=== PATIENT | female | born 1955 | race Two or more races ===

== ENCOUNTER 2019-12-22 11:02 | Emergency (ER) | payer SELFPAY ==
[2019-12-22 11:07] VITALS: BP 152/89; PULSE 99; RESP 14; TEMP 36.9; O2SAT 98; BMI 33.2
--- NOTE | 2019-12-22 11:50 | CTR_ITS ---
PROCEDURE INFORMATION: Exam: CT Head Without Contrast Exam date and time: 12/22/2019 11:58 AM Age: 64 years old Clinical indication: Pain; Headache; Additional info: Severe headache and dizziness TECHNIQUE: Imaging protocol: Computed tomography of the head without contrast. Radiation optimization: All CT scans at this facility use at least one of these dose optimization techniques: automated exposure control; mA and/or kV adjustment per patient size (includes targeted exams where dose is matched to clinical indication); or iterative reconstruction. COMPARISON: CT head wo con* [id number] 02/09/2017 9:27 AM RADIATION DOSE METRICS: Total DLP (mGy-cm): 860.27 FINDINGS: Brain: There is no acute intracranial hemorrhage. No extra-axial fluid collection. No evidence of acute infarct. Barrios white differentiation is intact. There is no evidence of mass. There is no mass effect or midline shift. Cerebral ventricles: No ventriculomegaly. Bones/joints: No acute fracture. Paranasal sinuses: Again seen is small amount of opacification in bilateral posterior ethmoid air cells. No sinus air-fluid levels. Mastoid air cells: Mastoid air cells and middle ear cavities are well developed and well aerated. Vasculature: There is mild calcification of intracranial internal carotid arteries. Soft tissues: Unremarkable as visualized. CT/CT head wo con* [id number] IMPRESSION: No evidence of acute intracranial abnormality. No acute hemorrhage. No evidence of acute infarct or mass. Radiation Dose CTDIVOL = (mGy): DLP = 860.27 (mGy-cm)
--- NOTE | 2019-12-22 11:50 | ECG_ITS ---
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
--- NOTE | 2019-12-22 11:51 | W.ED.CHESTPA ---
HPI - Chest Pain General: Chief Complaint: Chest Pain Stated Complaint: chest pain/headache Time Seen by Provider: 12/22/19 11:43 Source: patient and family Mode of arrival: ambulatory History of Present Illness: HPI narrative: Patient has had intermittent chest pain for the last 2 days. Yesterday she also had generalized headache that she said was severe and that worried her. Her only medical history is hypertension and she takes 10 mg of lisinopril daily. She has not seen her primary care provider in a while because of the Covid virus pandemic. She is currently pain free. MD complaint: chest pain Onset (ago): day(s) (2) Timing of current episode: episodic Prior episodes: Yes Onset: during rest Pain location: left chest Pain radiation: back Severity: severe Quality: tightness and heaviness Relieving factors: other (OTC meds - omeprazole and ibuprofen) Exacerbating factors: nothing Associated symptoms: Deny abdominal pain, diaphoresis, dyspnea, fever(s), leg edema, nausea, palpitations, sense of impending doom, syncope or vomiting Review of Systems General: Reports: 10 or more systems reviewed and unremarkable except in HPI and below Const: Denies: fever(s) or diaphoresis Eyes: Denies: change in vision or blurry vision ENMT: Denies: throat pain, enlarged tonsils, odynophagia, hoarseness, mouth pain or swelling of lips/tongue Card: Denies: palpitations or syncope Resp: Denies: dyspnea GI: Denies: abdominal pain, nausea or vomiting : Denies: flank pain, difficulty voiding, dysuria, urinary frequency, urinary urgency or urinary hesitancy Musc: Denies: neck pain, back pain or extremity swelling Skin/Breast: Denies: rash, pruritus or erythema Neuro: Denies: headache(s), numbness in extremities or weakness in extremities Endo: Denies: polyuria, polydipsia or tired all the time Physical Exam Const: COMMON NORMALS: no acute distress, average body habitus, patient oriented x3, no limitations, healthy appearing, alert and well nourished HENMT: COMMON NORMALS: normocephalic, atraumatic and moist oral mucous membranes HEAD & SCALP: normocephalic and atraumatic Neck/C-Spine: COMMON NORMALS: full ROM, supple, no meningeal signs, no JVD and No carotid bruits Chest: COMMONS NORMALS: normal inspection of the chest and normal palpation of entire chest wall Resp: COMMON NORMALS: normal respiratory effort, No retractions, No use of accessory muscles, clear to auscultation bilaterally and percussion normal AUSCULTATION: clear to auscultation bilaterally PERCUSSION: percussion normal Cardio: COMMON NORMALS: no JVD, regular rate, regular rhythm, S1 normal heart sound present, S2 normal heart sound present, No gallops present (Cardio), No clicks present (Cardio), No murmurs present (Cardio), No rub (Cardio) and Peripheral pulses 2+ throughout RATE: regular rate RHYTHM: regular rhythm HEART SOUNDS: S1 normal heart sound present and S2 normal heart sound present PERIPHERAL PULSES: Peripheral pulses 2+ throughout GI: COMMON NORMALS: Normal to inspection, nondistended, normoactive bowel sounds present, Soft to palpation, non-tender, No hepatosplenomegaly present, no masses and no bruits PALPATION: Yes Soft to palpation and Yes No hepatosplenomegaly present Extremity: COMMON NORMALS: normal to inspection, full ROM, capillary refill normal, no calf tenderness and no pedal edema Neuro: COMMON NORMALS: patient oriented x3 SENSORIUM/ORIENTATION: Yes alert MENINGEAL SIGNS: Yes no meningeal signs Skin: COMMON NORMALS: no rashes or lesions noted, no wounds, turgor normal, no jaundice, no petechiae and no mottling GENERAL SKIN EXAM: no rashes or lesions noted and turgor normal Course Reevaluation(s): Reevaluation #1: Discussed her lab and imaging findings with her. Negative for acute findings. Since the chest pain is intermittent and has been on for 2 days will order stress test for her outpatient for further evaluation of blood flow to her heart. She voiced understanding and is in agreement with the plan. Time: 13:35 Vital Signs: Vital signs: Vital Signs Temperature 98.4 F 12/22/19 11:07 Pulse Rate 102 H 12/22/19 14:06 Respiratory Rate 8 L 12/22/19 14:06 Blood Pressure 152/81 12/22/19 14:06 Pulse Oximetry 98 12/22/19 14:06 MDM - Chest Pain MDM Narrative: Medical decision making narrative: 64-year-old female patient who presents to the emergency department with chest pain. Evaluation in the ED was unremarkable for acute causes of the pain. 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 Medical Records: Attestation: I reviewed the patient's medical records. Lab Data: Attestation: I reviewed the patient's lab results. Labs: Lab Results 12/22/19 12/22/19 12/22/19 Range/Units 12:14 12:14 12:14 WBC 8.4 (4.0-10.0) 10^3/ uL RBC 4.39 (4.1-5.3) 10^6/u L Hgb 12.2 (11.5-15.3) g/dL Hct 38.0 (37.0-47.0) % MCV 86.6 (81-99) fL MCH 27.8 L (28.0-34.0) pg MCHC 32.1 (30.0-36.0) g/dL RDW 14.4 (12.1-15.1) % Plt Count 308 (130-400) 10^3/c mm MPV 9.3 (7.4-10.4) fL Neut % (Auto) 55.9 % Lymph % (Auto) 34.9 % Lewis % (Auto) 6.4 % Eos % (Auto) 2.1 % Baso % (Auto) 0.6 % Neut # (Auto) 4.68 (1.8-7.7) 10^3/u L Lymph # (Auto) 2.9 (0.8-4.8) 10^3/u L Lewis # (Auto) 0.5 (0.2-0.9) 10^3/u L Eos # (Auto) 0.2 (0.0-0.8) 10^3/u L Baso # (Auto) 0.1 (0.0-0.1) 10^3/u L Nucleated RBC % (a uto) 0 % Nucleated RBCs # 0.0 /100WBC D-Dimer 0.57 (0-0.59) ug/mIFE U Sodium 138 (136-145) mmol/L Potassium 4.1 (3.5-5.1) mmol/L Chloride 100 (98-107) mmol/L Carbon Dioxide 27 (22-29) mmol/L Anion Gap 15.1 (5-19) BUN 15 (8-23) mg/dL Creatinine 0.6 (0.5-0.9) mg/dL GFR Calculation 100.6 (90-130) mL/min Glucose 113 (65-115) mg/dL Calculated Osmolal ity 288 (285-295) mOsm/k g Calcium 9.6 (8.5-10.5) mg/dL Total Bilirubin 0.2 (0.15-1.2) mg/dL AST 22 (0-32) U/L ALT 24 (0-33) U/L Alkaline Phosphata se 104 (35-105) IU/L Troponin T Baselin e (0-10) ng/L NT-Pro-B Natriuret Pep 75 (0-125) pg/mL Total Protein 8.6 (6.6-8.7) g/dL Albumin 4.3 (3.5-5.2) g/dL Globulin 4.3 (1.3-4.6) g/dL Lipase 38 (13-60) U/L 12/22/19 Range/Units 12:14 WBC (4.0-10.0) 10^3/ uL RBC (4.1-5.3) 10^6/u L Hgb (11.5-15.3) g/dL Hct (37.0-47.0) % MCV (81-99) fL MCH (28.0-34.0) pg MCHC (30.0-36.0) g/dL RDW (12.1-15.1) % Plt Count (130-400) 10^3/c mm MPV (7.4-10.4) fL Neut % (Auto) % Lymph % (Auto) % Lewis % (Auto) % Eos % (Auto) % Baso % (Auto) % Neut # (Auto) (1.8-7.7) 10^3/u L Lymph # (Auto) (0.8-4.8) 10^3/u L Lewis # (Auto) (0.2-0.9) 10^3/u L Eos # (Auto) (0.0-0.8) 10^3/u L Baso # (Auto) (0.0-0.1) 10^3/u L Nucleated RBC % (a uto) % Nucleated RBCs # /100WBC D-Dimer (0-0.59) ug/mIFE U Sodium (136-145) mmol/L Potassium (3.5-5.1) mmol/L Chloride (98-107) mmol/L Carbon Dioxide (22-29) mmol/L Anion Gap (5-19) BUN (8-23) mg/dL Creatinine (0.5-0.9) mg/dL GFR Calculation (90-130) mL/min Glucose (65-115) mg/dL Calculated Osmolal ity (285-295) mOsm/k g Calcium (8.5-10.5) mg/dL Total Bilirubin (0.15-1.2) mg/dL AST (0-32) U/L ALT (0-33) U/L Alkaline Phosphata se (35-105) IU/L Troponin T Baselin e 6 (0-10) ng/L NT-Pro-B Natriuret Pep (0-125) pg/mL Total Protein (6.6-8.7) g/dL Albumin (3.5-5.2) g/dL Globulin (1.3-4.6) g/dL Lipase (13-60) U/L Imaging Data^: CXR: Attestation: I personally reviewed and interpreted this imaging study as follows: Radiologist's impression: [address] [address] XRay Report Signed Patient: Yas Willis #: [id number] : 6Acct#:[id number] Age/Sex: 64 / FADM Date: 12/22/19 Loc: [facility]oo/Bed: Attending Dr: Ordering Provider/Ordering MD: Lola Cox MD, [facility] Date of Service: 12/22/19 Procedure(s): XR chest 1V portable [id number] Accession Number(s): [id number] Report Number: [id number] PROCEDURE INFORMATION: Exam: XR Chest, 1 View Exam date and time: 12/22/2019 11:52 AM Age: 64 years old Clinical indication: Type not specified; Patient HX: Chest pain; PT denies surg HX on chest, PT denies HX of CA, PT denies smoking HX TECHNIQUE: Imaging protocol: XR of the chest Views: 1 view. COMPARISON: CR Chest 1 [place] [id number] 02/09/2017 9:17 AM FINDINGS: Lungs: No consolidation. Pleural space: No significant visible pleural effusion. No pneumothorax. Heart/Mediastinum: No significant cardiomegaly. Bones/joints: No acute finding. Stable deformity of left glenoid. XR/XR chest 1V portable [id number] IMPRESSION: No acute cardiopulmonary finding. Dictated By:Beatris Verduzco MD Signed By:Beatris Verduzco MDSigned Date/Time:12/22/191310 DD/ 09 Discharge Plan Discharge Patient Disposition: Home Clinical Impression: Chest pain Qualifiers: Chest pain type: unspecified Qualified Code(s): R07.9 - Chest pain, unspecified Hypertension Qualifiers: Hypertension type: essential hypertension Qualified Code(s): I10 - Essential (primary) hypertension Condition: Stable Prescriptions: New lisinopril 20 mg tablet 20 mg PO DAILY Qty: 30 RF: 0 Continued aspirin 81 mg Tablet,Delayed Release (Dr/Ec) 81 mg PO PRN RF: 0 Benadryl 25 mg Capsule 25 mg PO PRN RF: 0 omeprazole 20 mg Capsule,Delayed Release(Dr/Ec) 20 mg PO PRN RF: 0 Discontinued lisinopril 10 mg tablet 10 mg PO DAILY Qty: 30 RF: 0 Discharge Orders: Discharge Order (Routine); Ordered 12/22/19 Ordered By: Lola Cox Referrals: Zahira Baca DO [Primary Care Provider] - 1-3 days Discharge Diet: Low Cholesterol Discharge Activity: Resume usual activity Patient Instructions: Chest Pain (ED), Hypertension (ED) Activity Restrictions/Additional Instructions: Return for any new or worsening symptoms. Follow-up with your primary care provider within 3 days. Take a baby aspirin daily. You will be contacted to schedule an outpatient stress test for further evaluation of your heart. Discharge Date/Time: 12/22/19 14:09 Coding Level of Care Code ED Office Assistant Receptionist for Ashlyg Fwd Exam Comprehensive
[2019-12-22 12:20] LABS: Basophils # 0.1 10^3/uL (0.0-0.1); Basophils % 0.6 %; Eosinophils # 0.2 10^3/uL (0.0-0.8); Eosinophils % 2.1 %; Hemoglobin 12.2 g/dL (11.5-15.3); Lymphocytes # 2.9 10^3/uL (0.8-4.8); Lymphocytes % 34.9 %; Mean Corpuscular HGB Conc 32.1 g/dL (30.0-36.0); Mean Corpuscular Hemoglobin 27.8 pg (28.0-34.0); Mean Corpuscular Volume 86.6 fL (81-99); Mean Platelet Volume 9.3 fL (7.4-10.4); Monocytes # 0.5 10^3/uL (0.2-0.9); Monocytes % 6.4 %; Neutrophils # 4.68 10^3/uL (1.8-7.7); Neutrophils % 55.9 %; Nucleated Red Blood Cells % 0 %; Platelet Count 308 10^3/cmm (130-400); Red Blood Count 4.39 10^6/uL (4.1-5.3); Red Cell Distribution Width 14.4 % (12.1-15.1); White Blood Count 8.4 10^3/uL (4.0-10.0)
[2019-12-22 12:35] LABS: D Dimer 0.57 ug/mIFEU (0-0.59)
[2019-12-22 12:41] LABS: Troponin(5th) Baseline 6 ng/L (0-10)
[2019-12-22 12:51] LABS: Alanine Aminotransferase 24 U/L (0-33); Albumin Level 4.3 g/dL (3.5-5.2); Alkaline Phosphatase 104 IU/L (35-105); Anion Gap 15.1 (5-19); Aspartate Amino Transferase 22 U/L (0-32); Blood Urea Nitrogen 15 mg/dL (8-23); Calcium 9.6 mg/dL (8.5-10.5); Carbon Dioxide 27 mmol/L (22-29); Chloride 100 mmol/L (98-107); Globulin 4.3 g/dL (1.3-4.6); Glomerular Filtration Rate 100.6 mL/min (90-130); Glucose 113 mg/dL (65-115); Lipase 38 U/L (13-60); NT Pro B Type Natriuretic Pept 75 pg/mL (0-125); Osmolality Calculated 288 mOsm/kg (285-295); Potassium 4.1 mmol/L (3.5-5.1); Sodium 138 mmol/L (136-145); Total Bilirubin 0.2 mg/dL (0.15-1.2); Total Protein 8.6 g/dL (6.6-8.7)
[2019-12-22] MEDS: aspirin 81 mg Chew Tablet 324 MG PO (13:16)
[2019-12-22] MEDS: nitroglycerin 0.4 mg sublingual Tablet SUBLINGUAL (13:17)
[2019-12-22 14:06] VITALS: BP 152/81; PULSE 102; RESP 8; O2SAT 98
--- NOTE | 2019-12-24 14:35 | DCPLANNER ---
facilities project manager had message to schedule an outpatient stress test for patient. facilities project manager called and spoke with patients daughter to confirm that patient still wanted to have test, and to confirm who patient sees for primary care. facilities project manager was told that yes patients wants to have stress test ordered, and patient has been seen at [facility]. facilities project manager faxed order to centralized scheduling, will call for appointment information. facilities project manager will schedule a follow up appointment for patient with primary care physician after stress test.
--- NOTE | 2020-01-02 08:03 | DCPLANNER ---
Out patient stress test has been cancelled, patient wants to consult with primary care before having stress test. manager process excellence will call patient about primary care appointment.
--- NOTE | 2020-01-03 13:37 | DCPLANNER ---
manager meeting called and spoke with patient about getting a primary care physician. Patient stated that she wanted to speak with physician before having a stress test. manager meeting called [facility], spoke with Chelly, a follow up appointment was scheduled for Wednesday, January 08, 2020 at 11:[address] Hector. manager meeting called patient and gave patient the appointment information.
--- NOTE | 2020-01-23 14:40 | DCPLANNER ---
Patient had a follow up appointment scheduled for 01.08.[address] [facility] - patient did attend appointment.
== END 2019-12-22 14:09 | disposition home or self-care (01) ==
PROVIDERS: Emergency Provider Family Medicine; PCP Family Medicine
DX: R07.9 Chest pain, unspecified (principal); I10 Essential (primary) hypertension; Z79.82 Long term (current) use of aspirin
CPT/HCPCS: 12345; 70450; 71045; 80053; 83690; 83880; 84484; 85025; 85378; 93005; 99282; 99283

== ENCOUNTER 2020-03-24 09:23 | Outpatient (CLI) | payer SELFPAY ==
--- NOTE | 2020-03-24 09:30 | MM_ITS ---
WS: [id number] BILATERAL DIGITAL SCREENING MAMMOGRAPHY WITH CAD CLINICAL INFORMATION: Last Mammogram 3 years ago HISTORY: Screening mammogram. No current complaints. COMPARISON: September 27, 2018 TECHNIQUE: Bilateral CC and MLO views. FINDINGS: Scattered fibroglandular densities bilaterally. New ovoid density mid right breast best seen on the c c view measuring 4 mm. Recommend spot compression views and ultrasound for further evaluation. Vascul ar calcification. Punctate calcifications. Left breast is unchanged. MM/[place] [id number] IMPRESSION: BI-RADS: 0-Incomplete: Need additional imaging evaluation FOLLOW UP: Need Additional Imaging RECOMMEND RIGHT BREAST DIAGNOSTIC MAMMOGRAPHY WITH SPOT COMPRESSION VIEWS AND U LTRASOUND.
== END 2020-03-24 09:24 | disposition home or self-care (01) ==
LOC: RADSHAW 09:28
PROVIDERS: PCP Family Medicine Adult Medicine; Visit Provider Family Medicine Adult Medicine
DX: Z12.31 Encounter for screening mammogram for malignant neoplasm of breast (principal); R92.1 Mammographic calcification found on diagnostic imaging of breast
CPT/HCPCS: 77067

== ENCOUNTER 2020-04-16 06:00 | Outpatient (RCR) | payer SELFPAY | END 2020-04-19 23:59 | disposition home or self-care (01) | LOC: SPT 06:00 | PROVIDERS: PCP Family Medicine Adult Medicine; Referring Provider Family Medicine; Visit Provider Family Medicine | DX: M75.00 Adhesive capsulitis of unspecified shoulder (principal) | CPT/HCPCS: 97110; 97140; 97161 ==

== ENCOUNTER 2020-04-16 10:37 | Outpatient (CLI) | payer SELFPAY ==
--- NOTE | 2020-04-16 10:45 | MM_ITS ---
WS: [id number] RIGHT DIGITAL MAMMOGRAPHY WITH CAD CLINICAL INFORMATION: R92.8 - Other abnormal and inconclusive findings on diagnostic imaging of breas t COMPARISON: March 24, 2020 TECHNIQUE: 3 views of the right breast were obtained. FINDINGS: Scattered fibroglandular densities of the right breast. 4 mm ovoid density mid right breast is unchan ged. Ultrasound is pending. . ULTRASOUND BREAST RIGHT TECHNIQUE: Ultrasound right breast focused area of concern. CLINICAL INFORMATION: R92.8 - Other abnormal and inconclusive findings on diagnostic imaging of breas t COMPARISON: None. FINDINGS: Ultrasound right breast the 12:00 position 2 cm from the nipple. Anechoic 4 mm lesion with through-tr ansmission consistent with a incidental simple cyst. This corresponds to the area of concern seen on the mammogram. No other significant findings. MM/[place] [id number] IMPRESSION: BI-RADS: 2-Benign FOLLOW UP: 1 Year Follow-up Recommend return to annual screening mammography.
--- NOTE | 2020-04-16 11:00 | US_ITS ---
WS: [id number] RIGHT DIGITAL MAMMOGRAPHY WITH CAD CLINICAL INFORMATION: R92.8 - Other abnormal and inconclusive findings on diagnostic imaging of breas t COMPARISON: March 24, 2020 TECHNIQUE: 3 views of the right breast were obtained. FINDINGS: Scattered fibroglandular densities of the right breast. 4 mm ovoid density mid right breast is unchan ged. Ultrasound is pending. . ULTRASOUND BREAST RIGHT TECHNIQUE: Ultrasound right breast focused area of concern. CLINICAL INFORMATION: R92.8 - Other abnormal and inconclusive findings on diagnostic imaging of breas t COMPARISON: None. FINDINGS: Ultrasound right breast the 12:00 position 2 cm from the nipple. Anechoic 4 mm lesion with through-tr ansmission consistent with a incidental simple cyst. This corresponds to the area of concern seen on the mammogram. No other significant findings. US/US breast RT limited* [id number] IMPRESSION: BI-RADS: 2-Benign FOLLOW UP: 1 Year Follow-up Recommend return to annual screening mammography.
== END 2020-04-16 10:38 | disposition home or self-care (01) ==
LOC: RADSHAW 10:39
PROVIDERS: PCP Family Medicine Adult Medicine; Visit Provider Family Medicine
DX: R92.8 Other abnormal and inconclusive findings on diagnostic imaging of breast (principal)
CPT/HCPCS: 76642; 77065

== ENCOUNTER 2020-04-20 06:00 | Outpatient (RCR) | payer SELFPAY | END 2020-05-20 23:59 | disposition home or self-care (01) | LOC: SPT 06:00 | PROVIDERS: PCP Family Medicine Adult Medicine; Referring Provider Family Medicine; Visit Provider Family Medicine | DX: M75.00 Adhesive capsulitis of unspecified shoulder (principal) | CPT/HCPCS: 97110; 97140 ==

== ENCOUNTER → 2020-05-20 08:12 | Outpatient (BNVA) | payer SELFPAY | PROVIDERS: PCP Family Medicine Adult Medicine; Visit Provider Nurse Practitioner Family | DX: Z20.822 Contact with and (suspected) exposure to COVID-19 (principal) | CPT/HCPCS: 87635 ==

== ENCOUNTER 2020-11-18 15:45 | Outpatient (CLI) | payer MEDICARE, MEDICAID, SELFPAY ==
--- NOTE | 2020-11-18 15:51 | XR_ITS ---
WS: [id number] KNEE LEFT TECHNIQUE: 3 views of the left knee CLINICAL INFORMATION: KNEE PAIN, LEFT COMPARISON: None. FINDINGS: Mild tricompartmental arthritis worse in the medial joint compartment and patellofemoral articulation . Hypertrophic patella. Soft tissue edema. Small suprapatellar effusion. No acute fractures. 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 Kellgren-Giovanni Classification: grade 2 (minimal): definite osteophytes and p ossible joint space narrowing
--- NOTE | 2020-11-18 15:51 | XR_ITS ---
WS: [id number] SCREENING DEXA SCAN [employer] CLINICAL INFORMATION: POSTMENOPAUSAL STATUS COMPARISON: FINDINGS: The L1-L4 bone mineral density measures 1.288 g/cm2. This corresponds to a T score score of 0.9 and Z score of 2.1. Left femoral neck bone mineral density measures 1.169 g/cm2. This corresponds to a T score of 1.3 and Z score of 2.2. Right femoral neck bone mineral density measures 1.106 g/cm2. This corresponds to a T score 0.8of and Z score of 1.7. Mean femoral neck bone mineral density measures 1.137 g/cm2. This corresponds to a T score of 1.0 and Z score of 1.9. XR/XR DEXA axial skeleton* [id number] IMPRESSION: Normal bone mineralization. Patient's FRAX calculated 10 year probability for major osteoporotic fracture i s 7.5 % and osteoporotic hip fracture is 0.5%.
== END 2020-11-18 15:46 | disposition home or self-care (01) ==
PROVIDERS: PCP Family Medicine Adult Medicine; Visit Provider Family Medicine
DX: Z78.0 Asymptomatic menopausal state (principal); M25.562 Pain in left knee; M13.862 Other specified arthritis, left knee
CPT/HCPCS: 73562; 77080

== ENCOUNTER 2021-03-30 12:00 | Outpatient (CLI) | payer MEDICARE, MEDICAID, SELFPAY | END 2021-03-30 12:01 | disposition home or self-care (01) | LOC: SLEEP 03-31 11:47 | PROVIDERS: PCP Family Medicine Adult Medicine; Visit Provider Family Medicine | DX: G47.10 Hypersomnia, unspecified (principal) | CPT/HCPCS: G0399 ==

== ENCOUNTER 2021-05-12 09:01 | Outpatient (CLI) | payer MEDICARE, MEDICAID, SELFPAY ==
--- NOTE | 2021-05-12 09:07 | MM_ITS ---
WS: [id number] BILATERAL 3D TOMOSYNTHESIS DIGITAL SCREENING MAMMOGRAPHY WITH CAD CLINICAL INFORMATION: SCREENING HISTORY: Screening mammogram. No current complaints. COMPARISON: March 24, 2020 TECHNIQUE: Bilateral CC and MLO views. FINDINGS: Scattered fibroglandular densities bilaterally. Stable 4 mm ovoid nodule along the posterior nipple l ine RIGHT breast was previously evaluated and shown to represent a simple cyst. No suspicious focal m ass, asymmetry, calcifications, or architectural distortion. No evidence of malignancy. MM/[place] [id number] IMPRESSION: BI-RADS: 2-Benign FOLLOW UP: 1 Year Follow-up Recommend return to annual screening mammography.
== END 2021-05-12 09:02 | disposition home or self-care (01) ==
PROVIDERS: PCP Family Medicine Adult Medicine; Visit Provider Family Medicine
DX: Z12.31 Encounter for screening mammogram for malignant neoplasm of breast (principal)
CPT/HCPCS: 77063; 77067

== ENCOUNTER → 2021-08-27 12:43 | Outpatient (BNVA) | payer MEDICARE, MEDICAID, SELFPAY | PROVIDERS: PCP Family Medicine Adult Medicine; Visit Provider Family Medicine | DX: M25.50 Pain in unspecified joint (principal); Z51.81 Encounter for therapeutic drug level monitoring | CPT/HCPCS: 85025; 86038; 86140; 86431 ==

== ENCOUNTER 2021-09-02 07:53 | Outpatient (CLI) | payer MEDICARE, MEDICAID, SELFPAY ==
--- NOTE | 2021-09-02 08:25 | XR_ITS ---
WS: [id number] Lumbar spine, 3 views, 09/02/2021 Clinical Data: LUMBAR RADICULOPATHY Comparison: Lumbar spine, 01/15/2018. Findings: No compression fractures or subluxation is seen. There is minimal degenerative disc narrowing at L5-S 1. Small osteophytes are seen at L2-L5. The transverse processes and SI joints are normal. XR/XR lumbar spine 2-3V* [id number] Impression: 1. Degenerative disc narrowing L5-S1. 2. Small osteophytes L2-L5.
--- NOTE | 2021-09-02 08:25 | XR_ITS ---
WS: [email or web address] Thoracic spine, 3 views, 09/02/2021 Clinical Data: THORACIC RADICULOPATHY Comparison: None. Findings: No compression fractures are seen. The disc heights are normal. There is a slight levoscoliosis. There is minimal osteoarthritic spurring of all the thoracic vertebr al bodies. The paravertebral regions are normal. 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
--- NOTE | 2021-09-02 08:25 | XR_ITS ---
WS: [email or web address] Right foot, 3 views, 09/02/2021 Clinical Data: R FOOT PAIN Comparison: None. Findings: No fractures or dislocations are seen. No bone destruction or erosion is noted. The joint spaces and soft tissues are normal. XR/XR foot RT min 3V* [id number] Impression: Negative right foot.
== END 2021-09-02 07:54 | disposition home or self-care (01) ==
PROVIDERS: PCP Family Medicine; Visit Provider Family Medicine
DX: M54.14 Radiculopathy, thoracic region (principal); M54.16 Radiculopathy, lumbar region; M79.671 Pain in right foot; M47.894 Other spondylosis, thoracic region; M47.897 Other spondylosis, lumbosacral region; M25.78 Osteophyte, vertebrae
CPT/HCPCS: 72072; 72100; 73630

== ENCOUNTER 2021-09-20 06:00 | Outpatient (RCR) | payer MEDICARE, MEDICAID, SELFPAY | END 2021-10-20 23:59 | disposition home or self-care (01) | LOC: SPT 06:00 | PROVIDERS: PCP Family Medicine; Visit Provider Family Medicine | DX: M54.50 Low back pain, unspecified (principal) | CPT/HCPCS: 97110; 97140; 97161; G0283 ==

== ENCOUNTER 2021-10-21 06:00 | Outpatient (RCR) | payer MEDICARE, MEDICAID, SELFPAY | END 2021-11-11 23:59 | disposition home or self-care (01) | LOC: SPT 06:00 | PROVIDERS: PCP Family Medicine; Visit Provider Family Medicine | DX: M54.50 Low back pain, unspecified (principal) | CPT/HCPCS: 97110; 97140; G0283 ==

== ENCOUNTER 2022-04-14 14:02 | Outpatient (CLI) | payer MEDICARE, MEDICAID, SELFPAY ==
--- NOTE | 2022-04-14 14:20 | XR_ITS ---
WS: [email or web address] Exam: XR hip LT 2-3V wo/w pel* [id number] Date/Time of Exam: 04/14/2022 2:26 PM Reason For Exam: Left hip pain No fracture or dislocation. The joint compartment is well maintained. Normal soft tissues. XR/XR hip LT 2-3V wo/w pel* [id number] IMPRESSION: 1. Negative left hip.
== END 2022-04-14 14:03 | disposition home or self-care (01) ==
LOC: RAD 14:07
PROVIDERS: PCP Family Medicine; Visit Provider Family Medicine
DX: M25.552 Pain in left hip (principal)
CPT/HCPCS: 73502

== ENCOUNTER → 2022-04-21 07:51 | Outpatient (BNVA) | payer MEDICARE, MEDICAID, SELFPAY | PROVIDERS: PCP Family Medicine; Visit Provider Family Medicine | DX: I10 Essential (primary) hypertension (principal); Z51.81 Encounter for therapeutic drug level monitoring | CPT/HCPCS: 80053; 80061; 85025 ==

== ENCOUNTER 2022-05-18 07:42 | Outpatient (CLI) | payer MEDICARE, MEDICAID, SELFPAY ==
--- NOTE | 2022-05-18 08:00 | MM_ITS ---
WS: [id number] BILATERAL SCREENING DIGITAL TOMOSYNTHESIS MAMMOGRAM WITH CAD HISTORY: Screening mammogram COMPARISON: 05/12/2021, 03/24/2020 and 04/22/2016 Bilateral CC and MLO views with tomosynthesis and synthetic mammography submitted. Computer aided det ection analyzed. Breast composition: There are scattered areas of fibroglandular density. No suspicious masses, microc alcifications or architectural distortion. Stable appearance of the breasts since the prior study. Be nign calcifications. MM/[place] [id number] IMPRESSION: BI-RADS: 2-Benign FOLLOW UP: 1 Year Follow-up
== END 2022-05-18 07:43 | disposition home or self-care (01) ==
LOC: RAD 07:46
PROVIDERS: PCP Family Medicine; Visit Provider Family Medicine
DX: Z12.31 Encounter for screening mammogram for malignant neoplasm of breast (principal)
CPT/HCPCS: 77063; 77067

== ENCOUNTER → 2022-06-28 08:15 | Outpatient (BNVA) | payer MEDICARE, MEDICAID, SELFPAY | PROVIDERS: PCP Family Medicine; Visit Provider Family Medicine | DX: E78.5 Hyperlipidemia, unspecified (principal); I10 Essential (primary) hypertension | CPT/HCPCS: 80061 ==

== ENCOUNTER 2022-10-20 07:01 | Outpatient (CLI) | payer MEDICARE, MEDICAID, SELFPAY ==
--- NOTE | 2022-10-20 07:11 | XR_ITS ---
WS: [email or web address] Exam: XR cervical spine 3V* [id number] Date/Time of Exam: 10/20/2022 7:18 AM Reason For Exam: Cervical radiculopathy Comparison 07/23/2018. No acute fracture or dislocation. Degenerative disc change and mild spondylosis from C3-C7. Mild face t DJD at all levels. Reversal of the upper cervical lordosis. Normal paraspinal soft tissues. The odo ntoid is intact. Mild dextroscoliosis. IMPRESSION: 1. Moderate degenerative changes. No fracture or malalignment. Overall, no change since prior study.
== END 2022-10-20 07:02 | disposition home or self-care (01) ==
PROVIDERS: PCP Family Medicine; Visit Provider Family Medicine
DX: M54.12 Radiculopathy, cervical region (principal); M47.892 Other spondylosis, cervical region
CPT/HCPCS: 72040

== ENCOUNTER 2022-11-15 07:11 | Outpatient (CLI) | payer MEDICARE, MEDICAID, SELFPAY ==
--- NOTE | 2022-11-15 07:15 | MR_ITS ---
WS: [email or web address] MRI LUMBAR SPINE NONCONTRAST TECHNIQUE: Sagittal T1, T2 and STIR imaging. Axial T1 and T2 imaging. CLINICAL INFORMATION: Lumbar radiculopathy COMPARISON: MRI 2017 FINDINGS: Mild lumbar curve. No acute compression. No high-grade central canal stenosis. L1-L2: Normal. L2-L3: Mild facet arthropathy. Spinal canal and foramen are patent. L3-L4: Mild annular bulging. Small LEFT foraminal protrusion with mild LEFT foraminal narrowing. RIGH T foramen is patent. Mild facet arthropathy. L4-L5: Mild annular bulge with narrowing of the RIGHT subarticular recess. Moderate facet arthropathy . Spinal canal and foramen are patent. L5-S1: Mild annular bulging. Small RIGHT foraminal protrusion slightly contacts the exiting RIGHT L5 nerve root. LEFT foramen is patent. Moderate facet arthropathy. Visualized pelvic bony structures: Normal. Paravertebral soft tissues: Normal. IMPRESSION: 1. Small LEFT foraminal protrusion L3-4 slightly impinges the exiting LEFT L3 nerve root. This is ne w from previous. Recommend correlation LEFT L3 nerve root symptoms. 2. Mild annular bulging L4-5 with slight narrowing of the RIGHT subarticular recess. 3. Small RIGHT foraminal protrusion L5-S1 slightly contacts the exiting RIGHT L5 nerve root. 4. Moderate facet arthropathy L4-L5 and L5-S1.
== END 2022-11-15 07:12 | disposition home or self-care (01) ==
PROVIDERS: PCP Family Medicine; Visit Provider Family Medicine
DX: M51.17 Intervertebral disc disorders with radiculopathy, lumbosacral region (principal); M47.817 Spondylosis without myelopathy or radiculopathy, lumbosacral region
CPT/HCPCS: 72148

== ENCOUNTER → 2023-01-16 08:38 | Outpatient (BNVA) | payer MEDICARE, MEDICAID, SELFPAY | PROVIDERS: PCP Family Medicine; Visit Provider Anesthesiology Pain Medicine | DX: M54.12 Radiculopathy, cervical region; M15.9 Polyosteoarthritis, unspecified; M51.26 Other intervertebral disc displacement, lumbar region; M51.27 Other intervertebral disc displacement, lumbosacral region; M47.816 Spondylosis without myelopathy or radiculopathy, lumbar region | CPT/HCPCS: 99204 ==

== ENCOUNTER → 2023-03-15 10:07 | Outpatient (BNVA) | payer MEDICARE, MEDICAID, SELFPAY | PROVIDERS: PCP Family Medicine; Visit Provider Family Medicine | DX: Z51.81 Encounter for therapeutic drug level monitoring (principal); E78.5 Hyperlipidemia, unspecified; E55.9 Vitamin D deficiency, unspecified; R53.81 Other malaise; R53.83 Other fatigue; L98.9 Disorder of the skin and subcutaneous tissue, unspecified; Z13.220 Encounter for screening for lipoid disorders | CPT/HCPCS: 80053; 80061; 82306; 84443; 85025 ==

== ENCOUNTER 2023-03-24 07:00 | Outpatient (CLI) | payer MEDICARE, SELFPAY ==
--- NOTE | 2023-03-24 07:00 | US_ITS ---
WS: [email or web address] ULTRASOUND SOFT TISSUES posterior LEFT forearm. HISTORY: Painful nodule on left forearm posteriorly COMPARISON: None available. TECHNIQUE: 2-D and color Doppler imaging is submitted. Superficial hypoechoic nodule measuring 8 x 6 x 3 mm in the soft tissues of the mid forearm. No incre ased vascularity. No additional abnormality. IMPRESSION: Subcutaneous lipoma mid LEFT forearm.
== END 2023-03-24 07:01 | disposition home or self-care (01) ==
LOC: RAD 07:01
PROVIDERS: PCP Family Medicine; Visit Provider Family Medicine
DX: D17.22 Benign lipomatous neoplasm of skin and subcutaneous tissue of left arm (principal)
CPT/HCPCS: 76882

== ENCOUNTER 2023-05-22 13:26 | Outpatient (RCR) | payer MEDICARE, MEDICAID, SELFPAY | END 2023-06-20 23:59 | disposition home or self-care (01) | LOC: SPT 13:26 | PROVIDERS: PCP Family Medicine; Visit Provider Family Medicine | DX: M54.50 Low back pain, unspecified (principal) | CPT/HCPCS: 97110; 97161; G0283 ==

== ENCOUNTER 2023-05-24 08:46 | Outpatient (CLI) | payer MEDICARE, MEDICAID, SELFPAY ==
--- NOTE | 2023-05-24 09:25 | MM_ITS ---
WS: [id number] BILATERAL SCREENING DIGITAL TOMOSYNTHESIS MAMMOGRAM WITH CAD HISTORY: SCREENING COMPARISON: 05/18/2022, 05/12/2021 and 03/24/2020 Bilateral CC and MLO views with tomosynthesis and synthetic mammography submitted. Computer aided det ection analyzed. Breast composition: There are scattered areas of fibroglandular density. No suspicious masses, microc alcifications or architectural distortion. Benign calcifications. IMPRESSION: MM/[place] [id number] BI-RADS: 2-Benign FOLLOW UP: 1 Year Follow-up
== END 2023-05-24 08:47 | disposition home or self-care (01) ==
LOC: RAD 08:47
PROVIDERS: PCP Family Medicine; Visit Provider Family Medicine
DX: Z12.31 Encounter for screening mammogram for malignant neoplasm of breast (principal)
CPT/HCPCS: 77063; 77067

== ENCOUNTER 2023-06-21 06:00 | Outpatient (RCR) | payer MEDICARE, MEDICAID, SELFPAY | END 2023-07-21 23:59 | disposition home or self-care (01) | LOC: SPT 06:00 | PROVIDERS: PCP Family Medicine; Visit Provider Family Medicine | DX: M54.50 Low back pain, unspecified (principal) | CPT/HCPCS: 97110; G0283 ==